=== PATIENT | male | born 1945 | race Caucasian/White ===

== ENCOUNTER 2017-04-22 22:19 | Inpatient (IN) | payer OTHER, MEDICARE ==
[~2017-04-22] VITALS: Ht 180.3 cm; Wt 78.0 kg
[~2017-04-22 22:19] MED LIST: METF500 PO; UNKNOWN MED
[2017-04-22 22:37] VITALS: BP 149/66; PULSE 89; RESP 16; TEMP 102; O2SAT 93
[2017-04-22 22:39] VITALS: BP 149/66; PULSE 84; RESP 18; TEMP 102; O2SAT 94
[2017-04-22] MEDS ORDERED: CEFEPIME INJ 2,000 MG in SODIUM CHLORIDE 0.9% INJ 100 ML IV STA (22:49)
[2017-04-22] MEDS ORDERED: SODIUM CHLOR 0.9% 1000 ML INJ 1,000 ML IV ONE (22:49)
[2017-04-22] MEDS ORDERED: SODIUM CHLOR 0.9% 1000 ML INJ 800 ML IV ONE (22:49)
[2017-04-22] MEDS ORDERED: ACETAMINOPHEN 325 MG TAB PO ONE (23:00)
[2017-04-22 23:34] LABS: AUTOMATED NEUTROPHIL # 7.3 TH/MM3 (1.8-7.7); BASOPHIL % 0.5 % (0.0-2.0); EOSINOPHIL % 0.3 % (0.0-4.0); HEMATOCRIT 39.9 % (39.0-51.0); HEMO FLAGS DIFF FINAL; LYMPH % 5.4 % (9.0-44.0); LYMPHOCYTE # 0.5 TH/MM3 (1.0-4.8); MEAN CELL VOLUME 101.4 FL (80.0-100.0); MEAN CORPUSCULAR HGB CONC 33.6 % (32.0-36.0); MONO % 13.1 % (0.0-8.0); NEUT % 80.7 % (16.0-70.0); PLATELET COUNT 176 TH/MM3 (150-450); RED BLOOD COUNT 3.94 MIL/MM3 (4.50-5.90)
[2017-04-22 23:48] LABS: INTERNATIONAL NORMALIZED RATIO 1.1 RATIO; PROTHROMBIN TIME - PATIENT 12.7 SEC (9.8-11.6)
--- NOTE | 2017-04-22 23:48 | RADRPT ---
EXAM DATE/TIME: 04/22/2017 23:17 [facility] COMPARISON: No previous studies available for comparison. INDICATIONS : Fell. MEDICAL HISTORY : Diabetes mellitus type II. Carcinoma, prostatic. SURGICAL HISTORY : Prostatectomy. ENCOUNTER: Initial ACUITY: 1 day PAIN SCORE: 0/10 LOCATION: pelvis FINDINGS: There is no evidence of acute fracture. Bony mineralization is normal. Surgical clips are present in the pelvis characteristic of prostatectomy. Degenerative changes present at the lumbosacral junction. CONCLUSION: 1. There is no evidence of acute fracture. William Romeo MD on April 22, 2017 at 23:47 Board Certified Radiologist. This report was verified electronically.
--- NOTE | 2017-04-22 23:48 | RADRPT ---
EXAM DATE/TIME: 04/22/2017 23:13 [facility] COMPARISON: No previous studies available for comparison. INDICATIONS : Fever. MEDICAL HISTORY : Carcinoma, testicular. Diabetes mellitus type II. SURGICAL HISTORY : Prostatectomy. ENCOUNTER: Initial ACUITY: 1 day PAIN SCORE: 0/10 LOCATION: Bilateral chest FINDINGS: The cardiac silhouette is normal in transverse diameter. There is interstitial disease bilaterally ch aracteristic of edema or pneumonia. No pleural effusions are identified. CONCLUSION: 1. Bibasilar interstitial disease characteristic of edema or pneumonia William Romeo MD on April 22, 2017 at 23:45 Board Certified Radiologist. This report was verified electronically.
[2017-04-22 23:50] LABS: ANION GAP 13 MEQ/L (5-15); AST (GOT) 121 U/L (15-37); BICARBONATE 24.3 MEQ/L (21.0-32.0); BLOOD UREA NITROGEN 7 MG/DL (7-18); CHLORIDE 105 MEQ/L (98-107); GLOMERULAR FILTRATION RATE 49 ML/MIN (>89); POTASSIUM 4.4 MEQ/L (3.5-5.1); SODIUM (NA) 142 MEQ/L (136-145)
[2017-04-22 23:55] LABS: ALKALINE PHOSPHATASE 119 U/L (45-117); ALT (GPT) 88 U/L (12-78); CREATINE KINASE 368 U/L (39-308); TOTAL BILIRUBIN ADULT 3.6 MG/DL (0.2-1.0)
[2017-04-23] VITALS (9 sets, daily range): BP systolic 105–144; BP diastolic 59–66; PULSE 70–93; RESP 16–20; TEMP 98–100.5; O2SAT 92–100
--- NOTE | 2017-04-23 | PD ---
HPI Chief Complaint: Fall Time Seen by Provider: 22:49 Travel History International Travel<30 days: No Contact w/Intl Traveler<30days: No Traveled to known affect area: No History of Present Illness HPI 72-year-old male arrives to the ER by EMS. He experienced a fall in his bathroom today. He spent the day on the floor as he is unable to get up. He eventually crawled to a phone and called EMS brought to the ER. Here he complains of abdominal pain. He has no chest pain cough or shortness of breath. Upon arrival here fever was observed and a sepsis protocol was ordered. [facility] Past Medical History Arthritis: Yes (LEFT HAND) High Cholesterol: Yes Diminished Hearing: No Tetanus Vaccination: < 5 Years Past Surgical History Abdominal Surgery: Yes (APPENDECTOMY) Appendectomy: Yes Cardiac Surgery: No Eye Surgery: Yes (BILATERAL CATARACT) Neurologic Surgery: Yes (L5 DISC,) Pacemaker: No Other Surgery: Yes Social History Alcohol Use: Yes (3 DRINKS/DAY) Tobacco Use: Yes (5 CIGARS/DAY) Substance Use: No Allergies-Medications (Allergen,Severity, Reaction): Coded Allergies: No Known Allergies (Verified , 01/03/15) Uncoded Allergies: NKA (Allergy, Unknown, 05/29/03) NKDA (Allergy, Unknown, 05/29/03) Reported Meds & Prescriptions Reported Meds & Active Scripts Active Reported [Unknown Med] Glucophage 500 mg (Metformin HCl) 500 Mg Tab 500 Mg PO 5 TIMES A DAY Review of Systems Except as stated in HPI: all other systems reviewed are Neg Physical Exam Narrative GENERAL: 72-year-old male well-nourished well-developed SKIN: Focused skin assessment warm/dry. HEAD: Atraumatic. Normocephalic. EYES: Pupils equal and round. No scleral icterus. No injection or drainage. ENT: No nasal bleeding or discharge. Mucous membranes pink and moist. NECK: Trachea midline. No JVD. CARDIOVASCULAR: Regular rate and rhythm. No murmur appreciated. RESPIRATORY: No accessory muscle use. Clear to auscultation. Breath sounds equal bilaterally. GASTROINTESTINAL: Abdomen soft, non-tender, nondistended. Hepatic and splenic margins not palpable. MUSCULOSKELETAL: No obvious deformities. No clubbing. No cyanosis. No edema. Patient can elevate the left and right leg off the bed. There is no pain with axial load or instability of pelvis. NEUROLOGICAL: Patient answers questions appropriately. Motor functions normal 4. There is no focal cranial nerve deficit. Patient is a and O 3. PSYCHIATRIC: Appropriate mood and affect; insight and judgment normal. Data Data Last Documented VS Vital Signs Date Time Temp Pulse Resp B/P Pulse Ox O2 Delivery O2 Flow Rate FiO2 04/22/17 23:22 96 Nasal Cannula 2 04/22/17 22:39 102.0 84 18 149/66 Vital signs reviewed Orders Electrocardiogram (04/22/17 22:49) Complete Blood Count With Diff (04/22/17 22:49) Comprehensive Metabolic Panel (04/22/17 22:49) Prothrombin Time / Inr (Pt) (04/22/17 22:49) Act Partial Throm Time (Ptt) (04/22/17 22:49) Lactic Acid Sepsis Protocol (04/22/17 22:49) Lipase (04/22/17 22:49) Troponin I (04/22/17 22:49) Urinalysis - C+S If Indicated (04/22/17 22:49) Blood Culture (04/22/17 22:49) Chest, Single Ap (04/22/17 22:49) Blood Glucose (04/22/17 22:49) Ecg Monitoring (04/22/17 22:49) Iv Access Insert/Monitor (04/22/17 22:49) Cath For Specimen (04/22/17 22:49) Oximetry (04/22/17 22:49) Oxygen Administration (04/22/17 22:49) Acetaminophen (Tylenol) (04/22/17 23:00) Cefepime Inj (Maxipime Inj) (04/22/17 22:49) Sodium Chlor 0.9% 1000 Ml Inj (Ns 1000 M (04/22/17 22:49) Sodium Chlor 0.9% 1000 Ml Inj (Ns 1000 M (04/22/17 22:49) Creatine Kinase (Cpk) (04/22/17 22:49) Pelvis, Ap Only (Routine) (04/22/17 22:55) CKMB (04/22/17 23:18) CKMB% (04/22/17 23:18) Ct Abd/Pel W Iv Contrast(Rout) (04/23/17 00:00) Iohexol 350 Inj (Omnipaque 350 Inj) (04/23/17 00:31) Urine Culture (04/22/17 23:50) Labs Laboratory Tests Test 04/22/17 04/22/17 23:18 23:50 Prothrombin Time 12.7 SEC Prothromb Time International 1.1 RATIO Ratio Activated Partial 28.0 SEC Thromboplast Time White Blood Count 9.0 TH/MM3 Red Blood Count 3.94 MIL/MM3 Hemoglobin 13.4 GM/DL Hematocrit 39.9 % Mean Corpuscular Volume 101.4 FL Mean Corpuscular Hemoglobin 34.0 PG Mean Corpuscular Hemoglobin 33.6 % Concent Red Cell Distribution Width 14.0 % Platelet Count 176 TH/MM3 Mean Platelet Volume 7.9 FL Neutrophils (%) (Auto) 80.7 % Lymphocytes (%) (Auto) 5.4 % Monocytes (%) (Auto) 13.1 % Eosinophils (%) (Auto) 0.3 % Basophils (%) (Auto) 0.5 % Neutrophils # (Auto) 7.3 TH/MM3 Lymphocytes # (Auto) 0.5 TH/MM3 Monocytes # (Auto) 1.2 TH/MM3 Eosinophils # (Auto) 0.0 TH/MM3 Basophils # (Auto) 0.0 TH/MM3 CBC Comment DIFF FINAL Differential Comment Sodium Level 142 MEQ/L Potassium Level 4.4 MEQ/L Chloride Level 105 MEQ/L Carbon Dioxide Level 24.3 MEQ/L Anion Gap 13 MEQ/L Blood Urea Nitrogen 7 MG/DL Creatinine 1.41 MG/DL Estimat Glomerular Filtration 49 ML/MIN Rate Random Glucose 137 MG/DL Lactic Acid Level 5.0 mmol/L Calcium Level 8.0 MG/DL Total Bilirubin 3.6 MG/DL Aspartate Amino Transf 121 U/L (AST/SGOT) Alanine Aminotransferase 88 U/L (ALT/SGPT) Alkaline Phosphatase 119 U/L Total Creatine Kinase 368 U/L Creatine Kinase MB 2.7 NG/ML Creatine Kinase MB % 0.7 % Troponin I 0.03 NG/ML Total Protein 6.1 GM/DL Albumin 2.5 GM/DL Lipase 73 U/L Urine Color ORANGE Urine Turbidity HAZY Urine pH 6.0 Urine Specific [place] 1.020 Urine Protein 30 mg/dL Urine Glucose (UA) NEG mg/dL Urine Ketones NEG mg/dL Urine Occult Blood LARGE Urine Nitrite NEG Urine Bilirubin SMALL Urine Urobilinogen 4.0 MG/DL Urine Leukocyte Esterase NEG Urine RBC 114 /hpf Urine WBC 24 /hpf Urine Squamous Epithelial 1 /hpf Cells Urine Renal Epithelial Cells <1 /hpf Urine Bacteria OCC /hpf Urine Mucus FEW /lpf Microscopic Urinalysis Comment CATH-CULTURE IND MDM Medical Decision Making Medical Screen Exam Complete: Yes Emergency Medical Condition: Yes Medical Record Reviewed: Yes Differential Diagnosis rhabdomyolysis, renal failure, electrolyte imbalance, pneumonia, UTI, meningitis , Narrative Course CBC & BMP Diagram 04/22/17 23:18 Total bilirubin 3.6 AST 121 ALT 88 Tn 0.03 Total creatine kinase 368 Lipase 73 LA 5.0 INR 1.1 Last 24 hours Impressions Pelvis X-Ray 04/22/17 2255 Signed Impressions: Service Date/Time: April 23:17 - CONCLUSION: 1. There is no evidence of acute fracture. William Romeo MD Chest X-Ray 04/22/17 2249 Signed Impressions: Service Date/Time: April 23:13 - CONCLUSION: 1. Bibasilar interstitial disease characteristic of edema or pneumonia William Romeo MD CT of the L reveals 2 mm distal ureteral stone with left hydronephrosis; subsegmental atelectasis at both bases also observed Cefepime started. 0131 patient resting comfortably, and alert 3, vital signs stable Case discussed with Dr Hernández Diagnosis Primary Impression: Fall Qualified Code: W19.XXXA - Fall, initial encounter Additional Impressions: Fever Qualified Code: R50.9 - Fever, unspecified fever cause Ureteral stone Hyperbilirubinemia Admitting Information Admitting Physician Requests: Admit Bret Ferris MD Apr 23, 2017 00:00
[2017-04-23 00:07] LABS: CKMB 2.7 NG/ML (0.5-3.6)
[2017-04-23 00:31] LABS: BACTERIA, URINE OCC /hpf; BLOOD, URINE LARGE (NEG); COMMENT (UR) CATH-CULTURE IND; CULTURE IF INDICATED CATH CULTURE IND; GLUCOSE,URINE NEG (NEG); KETONE, URINE NEG (NEG); MUCUS URINE FEW /lpf (OCC); NITRITE,URINE NEG (NEG); RENAL EPITHELIAL CELLS <1 /hpf; SQUAMOUS EPITHELIAL CELL URINE 1 /hpf (0-5); URINE COLOR ORANGE (YELLW/STRAW)
[2017-04-23] MEDS ORDERED: IOHEXOL 350 MG/ML 10 ML VIAL (for RAD DIAG) IV ONE (00:31)
--- NOTE | 2017-04-23 01:05 | RADRPT ---
EXAM DATE/TIME: 04/23/2017 00:23 [facility] COMPARISON: No previous studies available for comparison. INDICATIONS : Abdominal pain. IV CONTRAST: 80 cc Omnipaque 350 (iohexol) IV ORAL CONTRAST: No oral contrast ingested. RADIATION DOSE: 9.96 CTDIvol (mGy) MEDICAL HISTORY : None SURGICAL HISTORY : Appendectomy. ENCOUNTER: Initial ACUITY: 1 day PAIN SCALE: 5/10 LOCATION: Midabdomen TECHNIQUE: Volumetric scanning of the abdomen and pelvis was performed. Using automated exposure control and ad justment of the mA and/or kV according to patient size, radiation dose was kept as low as reasonably achievable to obtain optimal diagnostic quality images. DICOM format image data is available electro nically for review and comparison. FINDINGS: There is subsegmental atelectasis in the both bases. The liver and spleen are free of focal defects. The gallbladder and pancreas demonstrate no abnormality. The adrenal glands are normal. The right ki dney is unremarkable.there is mild left hydronephrosis with a 2 mm stone at the level of the distal l eft ureter. No free fluid or abdominal masses are identified. No para-aortic adenopathy is seen. Examination of the pelvis demonstrates no evidence of free fluid or pelvic mass. No abnormally enlarg ed inguinal or retroperitoneal lymph nodes are present. The bladder is unremarkable. There is diverti culosis without evidence of diverticulitis. The prostate gland is surgically absent. CONCLUSION: 1. 2 mm distal left ureteral stone with mild left hydronephrosis William Romeo MD on April 23, 2017 at 0:58 Board Certified Radiologist. This report was verified electronically.
[2017-04-23 01:29] LABS: LACTIC ACID GHOST NOT REPORTABLE
[2017-04-23] MEDS ORDERED: SODIUM CHLORIDE 0.9% FLUSH 10 ML FLUSH IV FLUSH PRN (01:45)
[2017-04-23] MEDS ORDERED: DEXTROSE 50% IN WATER 50 ML VIAL(D50) IV PRN (01:45)
[2017-04-23] MEDS ORDERED: MAGNESIUM HYDROXIDE SUSP 30 ML CUP PO PRN (01:45)
[2017-04-23] MEDS ORDERED: ONDANSETRON HCL 4 MG/2 ML VIAL IVP PRN (01:45)
[2017-04-23] MEDS ORDERED: ACETAMINOPHEN/HYDROcodone 325 MG/5 MG TAB PO PRN (01:45)
[2017-04-23] MEDS ORDERED: BISACODYL 10 MG SUPP RECTAL PRN (01:45)
[2017-04-23] MEDS ORDERED: SENNOSIDES 8.6 MG TAB PO PRN (01:45)
[2017-04-23] MEDS ORDERED: Vancomycin Consult Pharmacy 1 EA OTHER SCH (01:45)
[2017-04-23] MEDS ORDERED: LACTULOSE SYRUP 20 GM/30 ML CUP PO PRN (01:45)
[2017-04-23] MEDS ORDERED: GLUCAGON 1 MG/ML VIAL OTHER PRN (01:45)
[2017-04-23] MEDS ORDERED: MORPHINE SULFATE 4 MG/ML INJ IV PRN (01:45)
[2017-04-23] MEDS ORDERED: ACETAMINOPHEN 325 MG TAB PO PRN (01:45)
[2017-04-23] MEDS: SODIUM CHLOR 0.9% 1000 ML INJ 1,000 ML IV SCH ×2 (02:12→20:39)
[2017-04-23] MEDS ORDERED: VANCOMYCIN 1,500 MG/NS 500 ML IV ONE ×2 (03:00)
--- NOTE | 2017-04-23 04:18 | HHI.HP ---
[facility] Unknown Admission Diagnosis Fall, Fever, Ureteric Stone, Hyperbilirubinemia Diagnoses: (1) Sepsis Diagnosis: Principal (2) PNA (pneumonia) Diagnosis: Principal (3) UTI (urinary tract infection) Diagnosis: Principal (4) Fall Diagnosis: Principal (5) MERI (acute kidney injury) Diagnosis: Principal (6) Renal stone Diagnosis: Principal (7) Hydronephrosis Diagnosis: Principal (8) Elevated LFTs Diagnosis: Principal (9) DM (diabetes mellitus) Diagnosis: Principal Travel History International Travel<30 Days: No Contact w/Intl Traveler <30 Da: No Traveled to Known Affected Are: No History of Present Illness This is a 72-year-old male with a PMH of Hyperlipidemia and DM who is brought to the ER by EMS after fall at home. Per EMS, patient had mechanical slip and fall in his bathroom and was unable to get up on his own and spent several hours lying on floor. Eventually able to get to his phone and called EMS. Pt does note abdominal pain, no fever, chills, nausea, vomiting or diarrhea. On arrival, BP 149/66, HR 89, O2 sat 93% on RA, Temp 102.0. WBC normal however elevated neutrophil count. To Acid 5.0. Creatinine 1.41, previously 1.20 on 05/06. LFTs elevated. Troponin negative. CPK 368. INR 1.1. UA with hematuria and bacteriuria. CXR with bibasilar interstitial disease likely edema or pneumonia. Pelvis X-ray with no acute fracture. CT Abd/Pelvis w/ 2mm distal left ureteral stone and mild left hydronephrosis. S/p Blood/Urine Culture and IV Cefepime in ER. Review of Systems Except as stated in HPI: all other systems reviewed are Neg ROS: 14 point review of systems otherwise negative. Past Family Social History Past Medical History PMH: Hyperlipidemia and DM Past Surgical History PAST SURGICAL HISTORY: Appendectomy, Bilateral Cataract Surgery, Lumbar Discectomy Allergies: Coded Allergies: No Known Allergies (Verified , 01/03/15) Uncoded Allergies: NKA (Allergy, Unknown, 05/29/03) NKDA (Allergy, Unknown, 05/29/03) Family History PAST FAMILY HISTORY: Reviewed. No h/o DM or CAD Social History PAST SOCIAL HISTORY: 3 drinks per day. Smokes 5 cigars per day. Negative for drugs. Physical Exam Vital Signs Vital Signs Date Time Temp Pulse Resp B/P Pulse Ox O2 Delivery O2 Flow Rate FiO2 04/23/17 02:36 98.9 80 16 144/62 98 Room Air 04/23/17 01:30 78 16 138/64 99 Room Air 04/22/17 23:22 96 Nasal Cannula 2 04/22/17 22:39 102.0 84 18 149/66 94 Room Air 04/22/17 22:39 88 18 94 Room Air 04/22/17 22:37 102.0 89 16 149/66 93 Physical Exam PE: GENERAL: Elderly white male in no acute distress. HEENT: PERRLA, EOMI. No scleral icterus or conjunctival pallor. No lid lag or facial droop. CARDIOVASCULAR: Regular rate and rhythm. No obvious murmurs to auscultation. No chest tenderness to palpation. RESPIRATORY: No obvious rhonchi or wheezing. Clear to auscultation. Breath sounds equal bilaterally. GASTROINTESTINAL: Abdomen soft, non-tender, nondistended. BS normal. MUSCULOSKELETAL: Extremities without clubbing, cyanosis, or edema. No obvious deformities. NEUROLOGICAL: Awake, alert and oriented x4. No focal neurologic deficits. Moving both upper and lower extremities spontaneously. Laboratory Laboratory Tests Test 04/22/17 04/22/17 04/23/17 23:18 23:50 02:10 Prothrombin Time 12.7 Prothromb Time International 1.1 Ratio Activated Partial 28.0 Thromboplast Time White Blood Count 9.0 Red Blood Count 3.94 Hemoglobin 13.4 Hematocrit 39.9 Mean Corpuscular Volume 101.4 Mean Corpuscular Hemoglobin 34.0 Mean Corpuscular Hemoglobin 33.6 Concent Red Cell Distribution Width 14.0 Platelet Count 176 Mean Platelet Volume 7.9 Neutrophils (%) (Auto) 80.7 Lymphocytes (%) (Auto) 5.4 Monocytes (%) (Auto) 13.1 Eosinophils (%) (Auto) 0.3 Basophils (%) (Auto) 0.5 Neutrophils # (Auto) 7.3 Lymphocytes # (Auto) 0.5 Monocytes # (Auto) 1.2 Eosinophils # (Auto) 0.0 Basophils # (Auto) 0.0 CBC Comment DIFF FINAL Differential Comment Sodium Level 142 Potassium Level 4.4 Chloride Level 105 Carbon Dioxide Level 24.3 Anion Gap 13 Blood Urea Nitrogen 7 Creatinine 1.41 Estimat Glomerular Filtration 49 Rate Random Glucose 137 Lactic Acid Level 5.0 2.0 Calcium Level 8.0 Total Bilirubin 3.6 Aspartate Amino Transf 121 (AST/SGOT) Alanine Aminotransferase 88 (ALT/SGPT) Alkaline Phosphatase 119 Total Creatine Kinase 368 Creatine Kinase MB 2.7 Creatine Kinase MB % 0.7 Troponin I 0.03 Total Protein 6.1 Albumin 2.5 Lipase 73 Urine Color ORANGE Urine Turbidity HAZY Urine pH 6.0 Urine Specific [place] 1.020 Urine Protein 30 Urine Glucose (UA) NEG Urine Ketones NEG Urine Occult Blood LARGE Urine Nitrite NEG Urine Bilirubin SMALL Urine Urobilinogen 4.0 Urine Leukocyte Esterase NEG Urine RBC 114 Urine WBC 24 Urine Squamous Epithelial 1 Cells Urine Renal Epithelial Cells <1 Urine Bacteria OCC Urine Mucus FEW Microscopic Urinalysis Comment CATH-CULTURE IND Date/Time Procedure Status Source Growth 04/22/17 23:50 Urine Culture Received Urine Catheterized Urine Pending 04/22/17 23:15 Aerobic Blood Culture Received Blood Peripheral Pending 04/22/17 23:15 Anaerobic Blood Culture Received Blood Peripheral Pending Result Diagram: 04/22/17231704/22/172317 Assessment and Plan Problem List: (1) Sepsis ICD Code: A41.9 Status: Acute (2) PNA (pneumonia) ICD Code: J18.9 Status: Acute (3) UTI (urinary tract infection) ICD Code: N39.0 Status: Acute (4) Fall ICD Code: W19.XXXA Status: Acute (5) MERI (acute kidney injury) ICD Code: N17.9 Status: Acute (6) Renal stone ICD Code: N20.0 Status: Acute (7) Hydronephrosis ICD Code: N13.30 Status: Acute (8) Elevated LFTs ICD Code: R79.89 Status: Acute (9) DM (diabetes mellitus) ICD Code: E11.9 Status: Acute Assessment and Plan A/P: 1. Sepsis: Temp 102.0, Lactic Acid 5.0, Source-PNA/UTI, s/p Blood/Urine Cultures, IV Cefepime in ER. Will follow up cultures, continue w/ IV Cefepime, add IV Vanc, IVF for hydration. Repeat Lactic Acid. 2. PNA: CXR w/ bibasilar infiltrates, likely pneumonia, images reviewed by me. Continue w/ IV Abx as above, DuoNeb prn if needed. 3. UTI: U/a w/ hematuria and bacteriuria, IVF for hydration, continue IV Abx. 4. Renal Stone: CT Abd/Pelvis w/ left 2mm distal ureteral stone w/ mild hydronephrosis, analgesics/antiemetics as needed. 5. MERI: Creatinine 1.41, previously 1.20 on 11/05/08, secondary to combination of renal stone, UTI and sepsis. IVF for hydration, repeat labs in a.m. 6. Fall: s/p mechanical slip and fall in bathroom w/ prolonged down time. CPK mildly elevated, IVF for hydration. No head trauma or LOC. Pelvic X-ray negative for fracture, images reviewed by me. 7. Elevated LFTs: New in comparison to labs from 2009, possibly related to sepsis/shock liver. IVF for hydration, repeat labs in am. 8. DM: Sliding scale w/ Accu-Cheks. Hold Metformin in light of renal insufficiency and sepsis. 9. DVT Prophylaxis: SCD/Teds. 10. Social work for d/c planning as needed. 11. Case discussed w/ ER physician at length. Physician Certification 2 Midnight Certification Type: Admission for Inpatient Services Order for Inpatient Services The services are ordered in accordance with Medicare regulations or non- Medicare payer requirements, as applicable. In the case of services not specified as inpatient-only, they are appropriately provided as inpatient services in accordance with the 2-midnight benchmark. Estimated LOS (days): 2 days is the estimated time the patient will need to remain in the hospital, assuming treatment plan goals are met and no additional complications. Post-Hospital Plan: Not yet determined Problem Qualifiers (1) Fall: Qualified Code: W19.XXXA - Fall, initial encounter Valerie Hernández MD Apr 23, 2017 04:18
[2017-04-23] MEDS: INSULIN ASPART SUPPLEMENTAL SCALE SQ SCH ×4 (05:31→20:38)
[2017-04-23] MEDS: DOCUSATE SODIUM 50 MG/SENNA 8.6 MG TAB PO SCH ×2 (09:00→20:38)
[2017-04-23] MEDS: CEFEPIME INJ 1,000 MG in SODIUM CHLORIDE 0.9% INJ 100 ML IV SCH ×2 (09:40→20:38)
--- NOTE | 2017-04-23 10:14 | EKG ---
Date Performed: 04/23/2017 Time Performed: 00:12:17 PTAGE: 72 years EKG: Sinus rhythm MARKED LEFT AXIS DEVIATION ABNORMAL ECG Since PREVIOUS TRACING , no significant change noted PREVIOUS TRACIN11/12/2009 09.49 DOCTOR: William Knox Interpretating Date/Time 04/23/2017 10:12:59
[2017-04-23 10:59] LABS: AUTOMATED NEUTROPHIL # 6.7 TH/MM3 (1.8-7.7); BASOPHIL # 0.1 TH/MM3 (0-0.2); BASOPHIL % 0.8 % (0.0-2.0); EOSINOPHIL % 0.4 % (0.0-4.0); HEMATOCRIT 36.1 % (39.0-51.0); HEMO FLAGS DIFF FINAL; LYMPHOCYTE # 0.7 TH/MM3 (1.0-4.8); MEAN CELL VOLUME 99.1 FL (80.0-100.0); MEAN CORPUSCULAR HEMOGLOBIN 34.1 PG (27.0-34.0); MEAN CORPUSCULAR HGB CONC 34.4 % (32.0-36.0); MONO % 12.3 % (0.0-8.0); NEUT % 78.5 % (16.0-70.0); PLATELET COUNT 143 TH/MM3 (150-450); RED BLOOD COUNT 3.64 MIL/MM3 (4.50-5.90); RED CELL DISTRIBUTION WIDTH 13.9 % (11.6-17.2); WHITE BLOOD COUNT 8.5 TH/MM3 (4.0-11.0)
[2017-04-23 11:32] LABS: BICARBONATE 23.5 MEQ/L (21.0-32.0); CALCIUM-PROTEIN CORRECTED 8.1 MG/DL (8.5-10.1); POTASSIUM 3.9 MEQ/L (3.5-5.1); TOTAL BILIRUBIN ADULT 2.9 MG/DL (0.2-1.0)
--- NOTE | 2017-04-23 18:09 | HHI.PR ---
Subjective Remarks Patient reports breathing better, is asking about going home, tolerating by mouth intake well Objective Vital Signs Date Time Temp Pulse Resp B/P Pulse Ox O2 Delivery O2 Flow Rate FiO2 04/23/17 16:43 98.5 70 20 132/62 95 04/23/17 12:30 98.0 74 20 131/63 95 04/23/17 08:49 98.0 77 20 105/59 92 04/23/17 05:49 100.5 04/23/17 03:29 98.3 81 18 134/61 94 04/23/17 02:36 98.9 80 16 144/62 98 Room Air 04/23/17 01:30 78 16 138/64 99 Room Air 04/22/17 23:22 96 Nasal Cannula 2 04/22/17 22:39 102.0 84 18 149/66 94 Room Air 04/22/17 22:39 88 18 94 Room Air 04/22/17 22:37 102.0 89 16 149/66 93 I/O 04/22/17 04/22/17 04/22/17 04/23/17 04/23/17 04/23/17 07:00 15:00 23:00 07:00 15:00 23:00 Intake Total 480 ml Balance 480 ml Intake Oral 480 ml # Voids 2 # Bowel Movements 1 2 Result Diagram: 04/23/17 1013 04/23/17 1013 Objective Remarks GENERAL: Resting comfortably, no acute distress EYES: No scleral icterus. No injection or drainage. CARDIOVASCULAR: Regular rate and rhythm without murmurs, gallops, or rubs. RESPIRATORY: Coarse breath sounds bilaterally No accessory muscle use. GASTROINTESTINAL: Abdomen soft, non-tender, nondistended. MUSCULOSKELETAL: No cyanosis, or edema. A/P Problem List: (1) PNA (pneumonia) ICD Code: J18.9 (2) MERI (acute kidney injury) ICD Code: N17.9 (3) Elevated LFTs ICD Code: R79.89 (4) DM (diabetes mellitus) ICD Code: E11.9 (5) Sepsis ICD Code: A41.9 (6) Hydronephrosis ICD Code: N13.30 (7) Renal stone ICD Code: N20.0 (8) Fever ICD Code: R50.9 Assessment and Plan A/P: 1. Sepsis: Likely secondary to pneumonia, blood cultures still pending, continue antibiotics, severe sepsis component has resolved as white count has normalized and fever has resolved. Blood cultures come back negative tomorrow and patient appears just as well as he does today, anticipate discharge. 2. Renal Stone: CT Abd/Pelvis w/ left 2mm distal ureteral stone w/ mild hydronephrosis, analgesics/antiemetics as needed. 3. MERI: IVF for hydration, repeat labs in a.m. 4. Fall: s/p mechanical slip and fall in bathroom w/ prolonged down time. CPK mildly elevated, IVF for hydration. No head trauma or LOC. Pelvic X-ray negative for fracture, images reviewed by me. 5. Elevated LFTs: possibly related to sepsis/shock liver. IVF for hydration, repeat labs in am. 8. DM: Sliding scale w/ Accu-Cheks. Hold Metformin in light of renal insufficiency and sepsis. 9. DVT Prophylaxis: SCD/Teds. Problem Qualifiers (1) Fever: Qualified Code: R50.9 - Fever, unspecified fever cause Jj Smyth MD Apr 23, 2017 18:09
[2017-04-23] MEDS: SODIUM CHLORIDE 0.9% FLUSH 10 ML FLUSH IV FLUSH SCH (20:38)
[2017-04-24 00:39] VITALS: PULSE 73
[2017-04-24 02:04] VITALS: BP 126/78; PULSE 74; RESP 20; TEMP 98.4; O2SAT 100
[2017-04-24 04:24] VITALS: BP 144/65; PULSE 71; RESP 18; TEMP 98.7; O2SAT 100
[2017-04-24] MEDS: INSULIN ASPART SUPPLEMENTAL SCALE SQ SCH ×3 (05:23→16:00)
[2017-04-24] MEDS ORDERED: VANCOMYCIN INJ 1,250 MG in SODIUM CHLOR 0.9% 250 ML INJ 250 ML IV SCH (06:00)
[2017-04-24] MEDS: SODIUM CHLOR 0.9% 1000 ML INJ 1,000 ML IV SCH (07:34)
[2017-04-24 08:35] VITALS: BP 154/70; PULSE 66; RESP 20; TEMP 97.9; O2SAT 93
[2017-04-24] MEDS: DOCUSATE SODIUM 50 MG/SENNA 8.6 MG TAB PO SCH (09:00)
[2017-04-24] MEDS: SODIUM CHLORIDE 0.9% FLUSH 10 ML FLUSH IV FLUSH SCH (09:00)
[2017-04-24] MEDS: CEFEPIME INJ 1,000 MG in SODIUM CHLORIDE 0.9% INJ 100 ML IV SCH (09:57)
[2017-04-24 12:18] VITALS: BP 148/66; PULSE 72; RESP 20; TEMP 97.8; O2SAT 94
[2017-04-24 12:45] LABS: ALT (GPT) 85 U/L (12-78); ANION GAP 12 MEQ/L (5-15); AST (GOT) 120 U/L (15-37); BICARBONATE 19.3 MEQ/L (21.0-32.0); BLOOD UREA NITROGEN 9 MG/DL (7-18); CHLORIDE 108 MEQ/L (98-107); GLOMERULAR FILTRATION RATE 75 ML/MIN (>89); POTASSIUM 3.8 MEQ/L (3.5-5.1); SODIUM (NA) 139 MEQ/L (136-145)
[2017-04-24 12:52] LABS: ALKALINE PHOSPHATASE 114 U/L (45-117); TOTAL BILIRUBIN ADULT 2.1 MG/DL (0.2-1.0)
[2017-04-24] MEDS ORDERED: LEVOFLOXACIN 500 MG TAB PO SCH (16:00)
[2017-04-24] MEDS ORDERED: LEVA500T20 PO (16:05)
--- NOTE | 2017-04-24 16:06 | HHI.DCPOC ---
Discharge Care Plan Diagnosis: (1) PNA (pneumonia) Your Health Problems Are: Shortness of Breath Additional Problems Pneumonia Goals to Promote Your Health * To prevent worsening of your condition and complications * To maintain your health at the optimal level. supervisor fur dressing your prescription for your antibiotic and start taking it tomorrow. Directions to Meet Your Goals Take your medications as prescribed Follow your dietary instruction Follow activity as directed Keep your appointments as scheduled Take your immunizations and boosters as scheduled If your symptoms worsen call your PCP, if no PCP go to Urgent Care Center or Emergency Room Smoking is Dangerous to Your Health. Avoid second hand smoke Call the 24-hour hour crisis hotline for domestic abuse at Jj Smyth MD Apr 24, 2017 16:06
--- NOTE | 2017-04-24 16:13 | HHI.DS ---
Discharge Summary Admission Date Apr 23, 2017 at 01:35 Discharge Date: Apr 24, 2017 Admitting Diagnosis Fall, Fever, Ureteric Stone, Hyperbilirubinemia (1) Sepsis ICD Code: A41.9 (2) PNA (pneumonia) ICD Code: J18.9 Diagnosis: Principal (3) UTI (urinary tract infection) ICD Code: N39.0 (4) Fall ICD Code: W19.XXXA (5) MERI (acute kidney injury) ICD Code: N17.9 (6) Renal stone ICD Code: N20.0 (7) Hydronephrosis ICD Code: N13.30 (8) Elevated LFTs ICD Code: R79.89 (9) DM (diabetes mellitus) ICD Code: E11.9 Procedures none Brief History - From Admission This is a 72-year-old male with a PMH of Hyperlipidemia and DM who is brought to the ER by EMS after fall at home. Per EMS, patient had mechanical slip and fall in his bathroom and was unable to get up on his own and spent several hours lying on floor. Eventually able to get to his phone and called EMS. Pt does note abdominal pain, no fever, chills, nausea, vomiting or diarrhea. On arrival, BP 149/66, HR 89, O2 sat 93% on RA, Temp 102.0. WBC normal however elevated neutrophil count. To Acid 5.0. Creatinine 1.41, previously 1.20 on 05/06. LFTs elevated. Troponin negative. CPK 368. INR 1.1. UA with hematuria and bacteriuria. CXR with bibasilar interstitial disease likely edema or pneumonia. Pelvis X-ray with no acute fracture. CT Abd/Pelvis w/ 2mm distal left ureteral stone and mild left hydronephrosis. S/p Blood/Urine Culture and IV Cefepime in ER. CBC/BMP: 04/23/17 1013 04/24/17 1120 Significant Findings Laboratory Tests Test 04/22/17 04/22/17 04/23/17 04/24/17 23:18 23:50 10:13 11:20 Prothrombin Time 12.7 SEC (9.8-11.6) Red Blood Count 3.94 MIL/MM3 3.64 MIL/MM3 (4.50-5.90) (4.50-5.90) Mean Corpuscular Volume 101.4 FL (80.0-100.0) Neutrophils (%) (Auto) 80.7 % 78.5 % (16.0-70.0) (16.0-70.0) Lymphocytes (%) (Auto) 5.4 % 8.0 % (9.0-44.0) (9.0-44.0) Monocytes (%) (Auto) 13.1 % 12.3 % (0.0-8.0) (0.0-8.0) Lymphocytes # (Auto) 0.5 TH/MM3 0.7 TH/MM3 (1.0-4.8) (1.0-4.8) Monocytes # (Auto) 1.2 TH/MM3 1.0 TH/MM3 (0-0.9) (0-0.9) Creatinine 1.41 MG/DL (0.60-1.30) Estimat Glomerular Filtration 49 ML/MIN (>89) 64 ML/MIN (>89) 75 ML/MIN (>89) Rate Random Glucose 137 MG/DL 130 MG/DL 116 MG/DL (74-106) (74-106) (74-106) Lactic Acid Level 5.0 mmol/L (0.4-2.0) Calcium Level 8.0 MG/DL 7.1 MG/DL 7.7 MG/DL (8.5-10.1) (8.5-10.1) (8.5-10.1) Total Bilirubin 3.6 MG/DL 2.9 MG/DL 2.1 MG/DL (0.2-1.0) (0.2-1.0) (0.2-1.0) Aspartate Amino Transf 121 U/L (15-37) 111 U/L (15-37) 120 U/L (15-37) (AST/SGOT) Alanine Aminotransferase 88 U/L (12-78) 85 U/L (12-78) (ALT/SGPT) Alkaline Phosphatase 119 U/L (45-117) Total Creatine Kinase 368 U/L (39-308) Total Protein 6.1 GM/DL 5.3 GM/DL (6.4-8.2) (6.4-8.2) Albumin 2.5 GM/DL 2.1 GM/DL 2.5 GM/DL (3.4-5.0) (3.4-5.0) (3.4-5.0) Urine Color ORANGE (YELLW/STRAW) Urine Turbidity HAZY (CLEAR) Urine Protein 30 mg/dL (NEG-TRACE) Urine Occult Blood LARGE (NEG) Urine Bilirubin SMALL (NEG) Urine Urobilinogen 4.0 MG/DL (LESS THAN 2.0) Urine RBC 114 /hpf (0-3) Urine WBC 24 /hpf (0-5) Urine Bacteria OCC /hpf (NONE) Urine Mucus FEW /lpf (OCC) Hemoglobin 12.4 GM/DL (13.0-17.0) Hematocrit 36.1 % (39.0-51.0) Mean Corpuscular Hemoglobin 34.1 PG (27.0-34.0) Platelet Count 143 TH/MM3 (150-450) Chloride Level 109 MEQ/L 108 MEQ/L (98-107) (98-107) Protein Corrected Calcium 8.1 MG/DL (8.5-10.1) Procalcitonin 2.83 ng/mL (0.00-0.50) Carbon Dioxide Level 19.3 MEQ/L (21.0-32.0) PE at Discharge GENERAL: Resting comfortably EYES: No scleral icterus. No injection or drainage. CARDIOVASCULAR: Regular rate and rhythm without murmurs, gallops, or rubs. RESPIRATORY: Breath sounds equal bilaterally. No accessory muscle use. Clear bilaterally GASTROINTESTINAL: Abdomen soft, non-tender, nondistended. MUSCULOSKELETAL: No cyanosis, or edema. Hospital Course Patient was admitted and started on IV fluids and IV antibiotics for treatment of possible sepsis secondary to pneumonia. His fever quickly resolved within 24 hours of treatment. He had been tolerating by mouth intake well. His white count had normalized his blood cultures were negative. Patient had met maximum benefit from hospitalization and was stable for discharge. Pt Condition on Discharge: Good Discharge Disposition: Discharge Home Discharge Time: > 30 minutes Discharge Instructions DIET: Follow Instructions for: As Tolerated, No Restrictions Speech Therapy-Diet Recommends: Regular Activities you can perform: Regular-No Restrictions Follow up Referrals: PCP Follow-up - 1 Week New Medications: Levofloxacin (Levaquin) 500 Mg Tablet 500 MG PO DAILY Infection #7 TAB Continued Medications: Metformin 500 mg (Glucophage 500 mg) 500 Mg Tab 500 MG PO 5 TIMES A DAY TAB ([Unknown Med]) Jj Smyth MD Apr 24, 2017 16:13
[2017-04-26] MEDS ORDERED: PHARMACY ORDERED LAB ONE (05:45)
== END 2017-04-24 17:13 | disposition home or self-care (01) | DRG 871 ==
LOC: NEPC 22:19 → NEDA 04-23 01:35 → N05A 04-23 03:39
PROVIDERS: ADMIT Hospitalist; ATTEND Hospitalist
DX: A41.9 Sepsis, unspecified organism (principal); J18.9 Pneumonia, unspecified organism; N17.9 Acute kidney failure, unspecified; N13.2 Hydronephrosis with renal and ureteral calculous obstruction; N39.0 Urinary tract infection, site not specified; F17.290 Nicotine dependence, other tobacco product, uncomplicated; E11.9 Type 2 diabetes mellitus without complications; E78.5 Hyperlipidemia, unspecified; R65.20 Severe sepsis without septic shock; E80.6 Other disorders of bilirubin metabolism; Z79.84 Long term (current) use of oral hypoglycemic drugs; Z91.81 History of falling
CPT/HCPCS: 51703; 71010; 72170; 74177; 80053; 81001; 82550; 82552; 82948; 83605; 83690; 84145; 84484; 85025; 85610; 85730; 87040; 87086; 93005; 96360; 96365; J0692; J3370; J7030; J7040; J7050; Q9967